=== PATIENT | female | born 1980 | race Caucasian/White ===

== ENCOUNTER → 2018-09-18 11:19 | Outpatient (CLI) | payer OTHER, SELFPAY ==
--- NOTE | 2018-09-18 11:21 | DI.US.S_ITS ---
PROCEDURE: US PELVIC COMPLETE INDICATIONS: PELVIC PAIN TECHNIQUE: Real-time scanning was performed of the pelvic organs, with image documentation. Additional endovaginal scanning was necessary due to incomplete visualization of the adnexal and endometrial structures by transabdominal scanning. COMPARISON: [facility], [place], PELVIC COMPLETE, 10/07/2014, 15:52. FINDINGS: Transabdominal scanning: Limited scanning through the kidneys shows no hydronephrosis. No pathologic free abdominal or pelvic fluid. Endovaginal scanning: Uterus: Uterus is normal in size at 11.2 x 4 x 6 cm. The endometrium measures 13 mm in combined thickness. Fluid can be seen along the endometrial stripe. Ovaries: The right ovary measures 3.5 x 1.7 x 1.6 cm. The left ovary measures 3.4 x 1.9 x 2.2 cm. The ovaries have a normal sonographic appearance, with a 1.3 cm dominant follicle seen within the right ovary. There is a 2.2 x 1.3 x 1 point or paraovarian cyst seen on the right. IMPRESSION: Unremarkable pelvic ultrasound, without an imaging explanation found for the presenting history of pelvic pain. Dictated by: Tyler Sharp M.D. on 09/18/2018 at 11:56 Approved by: Tyler Sharp M.D. on 09/18/2018 at 11:58
== END ==
PROVIDERS: PCP Family Medicine; Visit Provider Obstetrics & Gynecology
DX: R10.2 Pelvic and perineal pain (principal)
CPT/HCPCS: 76830; 76856